=== PATIENT | female | born 2000 | race Caucasian/White ===

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

== ENCOUNTER 2020-02-15 19:27 | Inpatient (IN) | payer OTHER ==
[~2020-02-15 19:27] MED LIST: Bupivacaine 0.25% HCL 30 ML VIAL ONE
[2020-02-15] MEDS ORDERED: hydrALAZINE 20 MG/ML VIAL SLOW IVP PRN (20:18)
[2020-02-15] MEDS ORDERED: Misoprostol 200 MCG TAB PR PRN (20:18)
[2020-02-15] MEDS ORDERED: Ondansetron PF 4 MG/2 ML Vial IVP PRN (20:18)
[2020-02-15] MEDS ORDERED: Carboprost 250 MCG/ML AMP IM PRN (20:18)
[2020-02-15] MEDS ORDERED: Diphenoxylate HCl/Atropine Tablet PO PRN (20:18)
[2020-02-15] MEDS ORDERED: NS / Oxytocin 40 units/1000ml 1,000 ML IV PRN (20:18)
[2020-02-15] MEDS ORDERED: NS w/ Oxytocin 10 units 500 ML IV SCH (20:18)
[2020-02-15] MEDS ORDERED: HYDROcodone/Acetaminophen 5/325 mg Tablet PO PRN (20:18)
[2020-02-15] MEDS ORDERED: Ibuprofen 800 MG TAB PO PRN (20:18)
[2020-02-15] MEDS ORDERED: Methylergonovine 0.2 MG/ML VIAL IM PRN (20:18)
[2020-02-15] MEDS ORDERED: Lidocaine 1% (PF) 30 ML VIAL SC PRN (20:18)
[2020-02-15] MEDS ORDERED: Butorphanol Tartrate 1 MG/ML VIAL SLOW IVP PRN (20:18)
[2020-02-15] MEDS ORDERED: Promethazine HCl 25 MG/ML VIAL IM PRN (20:18)
[2020-02-15] MEDS ORDERED: Penicillin G Potassium 5 MILL.UNITS in Sodium Chloride 0.9% 100 ML IVPB SCH (20:18)
[2020-02-15 20:36] LABS: Hemoglobin 10.9 g/dL (12.0-16.0); Mean Corpuscular HGB CONC 34.5 g/dL (32.0-36.0); Mean Corpuscular Hemoglobin 32.7 pg (25.0-35.0); Mean Corpuscular Volume 94.7 fL (78.0-98.0); Mean Platelet Volume 7.4 fL (7.4-10.4); Platelet Count 236 thou/uL (130-400); RBC Distribution Width 11.5 % (11.5-14.5); Red Blood Cell (RBC) Count 3.33 mill/uL (4.00-5.20)
[2020-02-15 20:44] VITALS: BMI 27.3
[2020-02-15 21:14] LABS: Syphilis Antibody Nonreactive (Nonreactive); Syphilis Antibody Index 0.04 S/CO (<1.00 Non-Reactive)
[2020-02-15] MEDS: Lactated Ringer's 1,000 ML IV SCH (21:17)
[2020-02-15] MEDS: Penicillin G 2.5 MILL.units 2.5 MILL.UNITS in Premix Bag 1 BAG IVPB SCH (21:25)
[2020-02-15 21:40] LABS: HBSAg Index 0.15 S/CO (0-0.99); Hep B Surf Ag Non-Reactive S/CO (NonReactive)
[2020-02-15] MEDS: NS w/ Oxytocin 10 units 500 ML IV SCH (22:13)
[2020-02-16] MEDS ORDERED: Misoprostol 100 MCG TAB PO SCH (00:15)
[2020-02-16] MEDS: Penicillin G 2.5 MILL.units 2.5 MILL.UNITS in Premix Bag 1 BAG IVPB SCH ×4 (01:09→13:00)
[2020-02-16] MEDS: NS w/ Oxytocin 10 units 500 ML IV SCH (04:38)
[2020-02-16] MEDS ORDERED: Acetaminophen 325 MG TAB PO SCH (06:15)
[2020-02-16] MEDS: Lactated Ringer's 1,000 ML IV SCH ×2 (06:38→12:01)
[2020-02-16] MEDS ORDERED: Fentanyl 4 mcg/Bup 0.1% Cadd 100 ML ONE (08:23)
[2020-02-16] MEDS ORDERED: EPHEDRINE 25 MG/5 ML SYRINGE SLOW IVP PRN (13:20)
[2020-02-16] MEDS ORDERED: Naloxone HCl 0.4 mg/ml Vial IVP PRN ×2 (13:20)
[2020-02-16] MEDS ORDERED: Lactated Ringer's 500 ML IV PRN (13:20)
[2020-02-16] MEDS ORDERED: Ondansetron PF 4 MG/2 ML Vial IVP PRN ×2 (13:20→15:41)
[2020-02-16] MEDS ORDERED: diphenhydrAMINE 50 MG/ML VIAL IVP PRN (13:20)
[2020-02-16] MEDS ORDERED: Acetaminophen 325 MG TAB PO PRN (13:20)
[2020-02-16] MEDS ORDERED: Promethazine HCl 25 MG/ML VIAL IM PRN (13:20)
[2020-02-16] MEDS ORDERED: Communication Order-Pharmacy FS SCH (13:30)
[2020-02-16] MEDS ORDERED: Fentanyl 4 mcg/Bupivacaine 0.1% Cassette 100 ML EPIDURAL SCH (13:30)
[2020-02-16] MEDS ORDERED: Bisacodyl 10 MG SUPP PR PRN (15:41)
[2020-02-16] MEDS ORDERED: diphenhydrAMINE 25 MG CAP PO PRN (15:41)
[2020-02-16] MEDS ORDERED: Milk Of Magnesia 30 ML UDCUP PO PRN (15:41)
[2020-02-16] MEDS ORDERED: Lanolin Ointment 7 GM TUBE TOP PRN (15:41)
[2020-02-16] MEDS ORDERED: hydrALAZINE 20 MG/ML VIAL SLOW IVP PRN (15:41)
[2020-02-16] MEDS ORDERED: HYDROcodone/Acetaminophen 5/325 mg Tablet PO PRN ×2 (15:41)
[2020-02-16] MEDS ORDERED: NS / Oxytocin 40 units/1000ml 1,000 ML IV SCH (15:41)
[2020-02-16] MEDS: Ferrous Sulfate 325 MG TAB PO SCH (18:45)
[2020-02-16] MEDS: Docusate Calcium (SURFAK) 240 MG CAP PO SCH (20:33)
[2020-02-16] MEDS: Ibuprofen 800 MG TAB PO SCH (20:33)
[2020-02-17] MEDS: Ibuprofen 800 MG TAB PO SCH ×2 (05:52→15:32)
[2020-02-17 06:10] LABS: Hemoglobin 10.2 g/dL (12.0-16.0); Mean Corpuscular HGB CONC 33.6 g/dL (32.0-36.0); Mean Corpuscular Hemoglobin 32.4 pg (25.0-35.0); Mean Corpuscular Volume 96.5 fL (78.0-98.0); Mean Platelet Volume 7.2 fL (7.4-10.4); Platelet Count 179 thou/uL (130-400); RBC Distribution Width 11.6 % (11.5-14.5); Red Blood Cell (RBC) Count 3.14 mill/uL (4.00-5.20); White Blood Cell (WBC) Count 8.4 thou/uL (4.8-10.8)
[2020-02-17] MEDS: Ferrous Sulfate 325 MG TAB PO SCH ×2 (08:49→17:39)
[2020-02-17] MEDS ORDERED: Adacel (T-DAP) 0.5 ML SYRINGE IM ONE (09:00)
[2020-02-17] MEDS ORDERED: Prenatal Vitamin 1 TAB PO SCH (09:00)
[2020-02-17] MEDS: Docusate Calcium (SURFAK) 240 MG CAP PO SCH (09:53)
[2020-02-17 11:37] VITALS: BP 116/64; TEMP 98.5
== END 2020-02-17 18:35 | disposition home or self-care (01) | DRG 807 ==
LOC: EEVIPCON 19:27 → L&D 19:27 → 3SE 02-16 16:08
PROVIDERS: ADMIT Family Medicine; ATTEND Family Medicine
PROC: 10E0XZZ Delivery of Products of Conception, External Approach (ICD-10-PCS; principal; 2020-02-15)
DX: O80 Encounter for full-term uncomplicated delivery (principal); Z37.0 Single live birth; Z3A.39 39 weeks gestation of pregnancy
CPT/HCPCS: 36415; 51702; 85027; 86780; 86850; 86900; 86901; 87340; J2540; J2590; J3490; S0020